=== PATIENT | male | born 1960 | race Caucasian/White ===

== ENCOUNTER 2024-08-13 08:13 | Outpatient (AMB) | payer OTHER, SELFPAY ==
--- NOTE | 2024-08-13 08:19 | MHC.OFFVIS ---
Vital Signs 08/13/24 08:26 Height 5 ft 11 in Weight 242 lb BMI 33.7 BP 140/88 H Blood Pressure Location Rt brachial Position Sitting Pulse 56 Pulse Source Pulse Oximeter Pulse Oximetry (%) 98 Oxygen Delivery Method Room Air Intake Visit Reasons: Colonoscopy Screening Intake Note: Relevant Flags or Indicators ? 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 Camilla Miguel presents in office today for a scheduled colonoscopy consultation. CC; hx of prior colo? Yes (5-6 years ago). Relevant GI Sx as reported per pt? Occasional heartburn, very infrequent and does not appear to be a concern. ? Hx of any recent surgeries? 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 male here today for pre colonoscopy screening.? Patient was sent to us by his PCP.? His last colonoscopy was over 5 years ago.? No blood work in his system, however his PCP send him for blood work today. Patient will get it done here at [facility] lab. Patient denies any gastrointestinal symptoms in the past or at present.? He does report occasional acid reflux once or twice a week uses Tums. Denies any personal or family history of gastrointestinal disease, colon polyps, or CRC.? Denies history of difficulty with sedation or anesthesia in the past.? Negative for history of sleep apnea.? Denies any history of cardiac, renal, pulmonary, or hepatic disease.?? No history of infectious? diseases like hepatitis A, B, C, HIV or tuberculosis.? Patient is not on any anticoagulation [facility] Medical History (Updated 08/13/24 @ 08:25 by GENEVA Mccrary) Migraine Family History (Updated 08/13/24 @ 08:25 by GENEVA Mccrary) Father Prostate cancer Diabetes Social History (Updated 08/13/24 @ 08:25 by GENEVA Mccrary) Alcohol intake: current Comment: Socially Patient Tobacco Use Status: Never used Tobacco Use of substances other than those prescribed or required for medical reasons: No Review of Systems Const Denies weight gain and Denies weight loss ENT Reports no additional complaints, Denies dysphagia and Denies odynophagia Card Reports no additional complaints Resp Reports no additional complaints GI Denies abdominal pain, Denies belching, Denies melena, Denies bloating, Denies change in bowel habits, Denies dysphagia, Denies excessive flatus, Denies dyspepsia, Denies heartburn, Denies diarrhea, Denies loose stools, Denies nausea, Denies odynophagia and Denies vomiting Reports no additional complaints Musc Reports no additional complaints Neuro Reports no additional complaints Psych Reports no additional complaints Endo Reports no additional complaints Physical Exam Vital Signs: Last Vital Signs Pulse 56 08/13/24 08:26 BP 140/88 H 08/13/24 08:26 Pulse Ox 98 08/13/24 08:26 Oxygen Delivery Method Room Air 08/13/24 08:26 BMI result Body Mass Index 33.7 Const General: healthy appearing, no acute distress and well developed Nutritional Appearance: well nourished Orientation/consciousness: patient oriented x3 Resp Effort & Inspection: normal respiratory effort, able to speak in complete sentences, no tracheal deviation and symmetric chest movement Auscultation: clear to auscultation bilaterally Cardio Rate: regular rate GI Inspection: Yes normal to inspection and No distended Palpation (GI): Soft to palpation, not firm, nontender and No hepatosplenomegaly present Auscultation: normal bowel sounds General: Yes no CVA tenderness Back/Spine/Pelvis Back: no CVA tenderness Skin General skin exam: elasticity normal, turgor normal and dry skin Neuro General: patient oriented x3 Psych Appearance: grossly normal Mental Status: mental status grossly normal Assessment & Plan Assessment & Plan (1) Screen for colon cancer: Code(s): Z12.11 - Encounter for screening for malignant neoplasm of colon Plan Patient denies any GI, cardiac or respiratory symptoms.? Denies any issues with anesthesia in the past.? Denies any history of sleep apnea.? No history infectious diseases in the past or present.? Not on any anticoagulation therapy.? No family or personal history of colon cancer or polyps.? Patient denies melena, hematochezia, unintentional weight loss or ribbon like stools.? Discussed at length the pre-procedure,? prep, diet & medications as well as what to expect prior, during and after the procedure.?? Stressed the importance of good bowel prep.? Recommended the use of Vaseline or Calmoseptine OTC & baby wipes with bowel movements to promote comfort.? ?Patient verbalizes understanding and agrees to plan of care.? He was given the opportunity to ask questions and all questions answered.? We will see him after the procedure.? Medications: New polyethylene glycol 3350 (Miralax) As directed by gastroenterology department at [facility] 238 grams PO ONCE 238 grams 0RF Z12.11 - Encounter for screening for malignant neoplasm of colon bisacodyl (Dulcolax (bisacodyl)) take 4 tabs at noon the day before your colonoscopy 20 mg (4 x 5 mg) PO ONCE 1 day 4 tabs 0RF Z12.11 - Encounter for screening for malignant neoplasm of colon Coding Level of Care Code New Pt Level 3 (72758) Diagnoses Screen for colon cancer Z12.11 Time Spent (min) 40 Comment 30 minutes spent with patient and additional 10 minutes spent reviewing his records
[2024-08-13 08:26] VITALS: BP 140/88; PULSE 56; O2SAT 98; BMI 33.7
== END 2024-08-13 09:28 | disposition home or self-care (01) ==
PROVIDERS: PCP Internal Medicine; Visit Provider Nurse Practitioner Family
DX: Z01.818 Encounter for other preprocedural examination (principal); Z12.11 Encounter for screening for malignant neoplasm of colon
CPT/HCPCS: S0285

== ENCOUNTER → 2024-08-13 08:13 | Outpatient (BNVA) | payer OTHER, SELFPAY | PROVIDERS: PCP Internal Medicine; Visit Provider Nurse Practitioner Family ==

== ENCOUNTER 2024-08-13 09:08 | Outpatient (REF) | payer OTHER, SELFPAY ==
[2024-08-13 09:43] LABS: MANUAL DIFF FLAG NO
[2024-08-13 10:58] LABS: Basophils Absolute Auto 0.1 X10*3/uL (0.0-0.2); Basophils Percent Auto 1.8 % (0-2); Eosinophils Absolute Auto 0.2 X10*3/uL (0.0-0.4); Eosinophils Percent Auto 4.2 % (0-4); Hematocrit 45.2 % (42.0-52.0); Hemoglobin 15.5 g/dl (14.0-18.0); Imm Gran Abs Auto 0.03 X10*3/uL (0.00-0.03); Imm Gran Pct Auto 0.6 % (0.0-0.4); Lymphocytes Absolute Auto 1.7 X10*3/uL (1.2-4.9); Lymphocytes Percent Auto 33.7 % (20-40); Mean Corpuscular HGB Conc 34.3 g/dl (31.0-36.0); Mean Corpuscular Hemoglobin 30.5 pg (27.0-33.0); Mean Platelet Volume 10.2 fL (9.4-12.4); Monocytes Absolute Auto 0.5 X10*3/uL (0.1-1.2); Monocytes Percent Auto 10.6 % (2-11); Neutrophils Absolute Auto 2.5 x10*3/uL (2.0-8.3); Neutrophils Percent Auto 49.1 % (45-73); Platelet Count 204 X10*3/uL (160-400); Red Blood Count 5.08 X10*6/uL (4.60-5.80); Red Cell Distribution Width 12.8 % (11.0-16.0)
[2024-08-13 11:07] LABS: Estimated Average Glucose 111 mg/dL; Hemoglobin A1C 141.7455 umol/L; Hemoglobin A1c % 5.5 % (<6.0); Total Hemoglobin (HGBA1C) 3907.9543 umol/L
[2024-08-13 11:47] LABS: Prostate Specific Antigen Scr 3.23 ng/mL (<0.05-4.0)
[2024-08-13 11:51] LABS: Alanine Aminotransferase 45 U/L (0-40); Albumin Level 4.2 g/dL (3.5-5.0); Alkaline Phosphatase 65 U/L (39-117); Anion Gap 14 (12-20); Aspartate Amino Transferase 38 U/L (5-37); Bilirubin Total 0.5 mg/dL (0.0-1.0); Blood Urea Nitrogen 18 mg/dL (9-16); Calcium 9.3 mg/dL (8.4-10.2); Carbon Dioxide 24 mmol/L (22-29); Chloride 106 mmol/L (96-108); Cholesterol 222 mg/dL (<200); Estimated Glomerular Filt Rate > 60; Glucose Random 88 mg/dL (60-115); HDL Cholesterol 45 mg/dL (>40); LDL Cholesterol Calculated 130 mg/dL (<100); Potassium 4.4 mmol/L (3.3-5.1); Sodium 140 mmol/L (135-145); Total Protein 7.3 g/dL (6.5-8.0); Triglycerides 236 mg/dL (<150)
[2024-08-13 11:55] LABS: TSH reflex Free T4 2.44 uIU/mL (0.32-4.0)
== END 2024-08-13 09:09 | disposition home or self-care (01) ==
LOC: HO.LAB 09:08
PROVIDERS: PCP Internal Medicine; Referring Provider Nurse Practitioner Family; Visit Provider Internal Medicine
DX: Z00.00 Encounter for general adult medical examination without abnormal findings (principal); G43.001 Migraine without aura, not intractable, with status migrainosus; Z83.3 Family history of diabetes mellitus; Z12.5 Encounter for screening for malignant neoplasm of prostate; Z13.1 Encounter for screening for diabetes mellitus
CPT/HCPCS: 36415; 80053; 80061; 83036; 84153; 84443; 85025

== ENCOUNTER 2024-12-18 08:13 | Day surgery (SDC) | payer OTHER, SELFPAY ==
[2024-12-16 14:56] VITALS: BMI 33.7
--- NOTE | 2024-12-17 09:18 | P.CONAN_ITS ---
Documented by User: Ena Olmedo NP 12/17/24 09:18 HPI - Anesthesia Eval Consult details Narrative: 64yo M for Colonoscopy [facility], [facility] Past Medical History Medical History Migraine Family History Family History Father Prostate cancer Diabetes Surgical History Surgical History Hx of elbow surgery H/O colonoscopy Social History Social History Are you a primary customer care voice consultant to a significant other at home: No Do you presently have visiting nurse or other home services: No Alcohol intake: current Comment: Socially Patient Tobacco Use Status: Never used Tobacco Have you been hit, kicked, punched, or otherwise hurt by someone within the past year? If so, by whom?: No Are you DNR?: No Advance Directives: No Advance Directives Information Provided: Yes Poor oral hygiene: No Meds Allergies Allergy/AdvReac Type Severity Reaction Status Date / Time No Known Drug Allergies Allergy Unknown Verified 12/18/24 08:24 Home Medications ?Medication ?Instructions ?Recorded ?Confirmed ?Last Taken ?Type sumatriptan succinate 25 mg tablet mg PO 08/08/24 Unknown History multivitamin 1 tab PO DAILY 08/13/24 12/18/24 Unknown History niacin 100 mg tablet 100 mg PO DAILY 08/13/24 12/18/24 Unknown History omega 0-wqn-jzz-fish oil 60 mg-90 1 cap PO DAILY 08/13/24 12/18/24 Unknown History mg-500 mg capsule Exam Height,Weight and Vital Signs: Height 5 ft 11 in Weight 109.769 kg Assessment and Plan Assessment Anesthesia Assessment: Chart Reviewed Documented by User: Bren Singletary MD 12/18/24 10:16 [facility] Past Medical History Medical History Migraine Family History Family History Father Prostate cancer Diabetes Surgical History Surgical History Hx of elbow surgery H/O colonoscopy History of Problems with Anesthesia: No Social History Social History Are you a primary customer care voice consultant to a significant other at home: No Do you presently have visiting nurse or other home services: No Alcohol intake: current Comment: Socially Patient Tobacco Use Status: Never used Tobacco Have you been hit, kicked, punched, or otherwise hurt by someone within the past year? If so, by whom?: No Are you DNR?: No Advance Directives: No Advance Directives Information Provided: Yes Poor oral hygiene: No Meds Allergies Allergy/AdvReac Type Severity Reaction Status Date / Time No Known Drug Allergies Allergy Unknown Verified 12/18/24 08:24 Home Medications ?Medication ?Instructions ?Recorded ?Confirmed ?Last Taken ?Type sumatriptan succinate 25 mg tablet mg PO 08/08/24 Unknown History multivitamin 1 tab PO DAILY 08/13/24 12/18/24 Unknown History niacin 100 mg tablet 100 mg PO DAILY 08/13/24 12/18/24 Unknown History omega 3-dnd-uwn-fish oil 60 mg-90 1 cap PO DAILY 08/13/24 12/18/24 Unknown History mg-500 mg capsule Exam Airway Mallampati Class: III TM Dist: >3cm Neck ROM: Full Loose/Missing/Broken Teeth: No Heart: RRR Lungs: CTA Assessment and Plan Assessment Anesthesia Assessment: Anesthesia Plan Discussed Final Anesthetic Review History of Problems with Anesthesia: No NPO: Yes ASA Class: II Final Preanesthetic Review: Meds/Allgs Chart Reviewed, Consent Obtained/Reviewed and Anes Risks/Benef Reviewed Patient Risk: Low Procedure Risk: Low Anesthetic Plan Anesthetic Plan: MAC: Disposition: Standard PACU
[2024-12-18 08:26] VITALS: BMI 33.3
[2024-12-18] MEDS: Lactated Ringers 1,000 ML 100 ML IVCONT (08:32)
[2024-12-18 08:41] VITALS: BP 146/93; PULSE 64; RESP 18; TEMP 36.7; O2SAT 99
--- NOTE | 2024-12-18 09:35 | MHC.SHP ---
Pre-Procedural Eval Section A - 24 Hr Update-Section A only Date of Service: 12/18/24 Section B - Complete if H&P > 30 days Chief Complaint: Encounter for screening for malignant neoplasm of Relevant Family History (Specify if Yes): No Relevant Social History: None Present Medications: see Short Stay Collaborative assessment Medical History: Significant History (migraine ) History of Previous Operations: Relevant previous surgery/procedure and date(s) (colonoscopy) Allergies: Allergies Allergy/AdvReac Type Severity Reaction Status Date / Time No Known Drug Allergies Allergy Unknown Verified 12/18/24 08:24 Review of Systems Sugical H&P ROS: Negative: Constitution, Cardiovascular, Respiratory, Neurological, Psychiatric, Hem-Onc, Allergic/Immunologic, Gastrointestinal, Genitourinary, Musculoskeletal, Integumentary, Endocrine and Eyes/Ears/Nose/Throat Exam Surgical H&P Exam: Normal: HEENT, Normal: Heart, Normal: Lungs, Normal: Extremities, Normal: Abdomen, Normal: Skin and Normal: Neurological Plan Diagnosis/Plan: Unchanged I have reviewed the history and physical and performed a pertinent physical examination on my patient. No changes have occurred unless specified. Time Spent With Patient Time: Total time managing care of this patient today ____ minutes.
--- NOTE | 2024-12-18 10:27 | P.OPN-COLO_ITS ---
Colonoscopy Operative Note Operative Note Date of Service: 12/18/24 Narrative: Operative Information Procedure Description: Colonoscopy Indication: screening Anesthesia: MAC COLONOSCOPY Instrument: Olympus variable stiffness pediatric scope 190L Colonoscopy Monitoring: Vital signs and clinical assessment, continuous EKG monitoring, Pulse oximetry, Carbon Dioxide monitoring and blood pressure monitoring were done throughout the procedure. Colon withdrawal time was 7 minutes. Procedure: The patient was placed in the left lateral decubitis position and pre-procedure medications were administered. After a digital rectal examination of the ano-rectum, the video colonoscope was inserted into the rectum and advanced through the colon to the cecum/TI. The colonoscope was slowly withdrawn in a retrograde panoramic fashion and the colon mucosa was carefully examined including a retroflexed view of the rectum. Findings and interventions are described below. Procedure Difficulty: easy Findings: Terminal Ileum-normal Cecum:normal Right sided retroflexion- normal Ascending Colon: normal Transverse Colon -normal Descending Colon:normal Sigmoid Colon: normal Rectum: Retroflexion with small internal hemorrhoids seen, grade I Anorectum - normal Intervention: none Colon preparation: [place] Bowel Preparation Scale Right colon; 2 Transverse colon: 2 Left colon; 2 (0 = Unprepared colon segment with mucosa not seen due to solid stool that cannot be cleared. 1 = Portion of mucosa of the colon segment seen, but other areas of the colon segment not well seen due to staining, residual stool and/or opaque liquid. 2 = Minor amount of residual staining, small fragments of stool and/or opaque liquid, but mucosa of colon segment seen well. 3 = Entire mucosa of colon segment seen well with no residual staining, small fragments of stool or opaque liquid) Impression and Post Procedure Diagnosis: internal hemorrhoids Plan: High fiber diet leaflet Avoid straining at stool, epsom salts and sitz bath, anusol supps or cream Repeat Colonoscopy in 10 years or earlier if clinically indicated Above findings were reviewed with the patient and relevant handouts were provided if indicated.
[2024-12-18 10:34] VITALS: PULSE 68; RESP 18; TEMP 36.2; O2SAT 97
[2024-12-18 10:35] VITALS: BP 113/63
[2024-12-18 10:49] VITALS: BP 139/92; PULSE 60; RESP 18; O2SAT 97
[2024-12-18 11:04] VITALS: BP 136/88; PULSE 55; RESP 18; TEMP 36.3; O2SAT 99
== END 2024-12-18 11:39 | disposition home or self-care (01) ==
PROVIDERS: Visit Provider Internal Medicine Gastroenterology
PROC: 0DJD8ZZ Inspection of Lower Intestinal Tract, Via Natural or Artificial Opening Endoscopic (ICD-10-PCS; CPT 45378; principal; 2024-12-18 11:10)
DX: Z12.11 Encounter for screening for malignant neoplasm of colon (principal); K64.0 First degree hemorrhoids
CPT/HCPCS: 45378; J2003; J2704

== ENCOUNTER → 2024-12-18 08:13 | Outpatient (BNV) | payer OTHER, SELFPAY | PROVIDERS: Visit Provider Internal Medicine Gastroenterology | DX: Z12.11 Encounter for screening for malignant neoplasm of colon (principal); K64.0 First degree hemorrhoids | CPT/HCPCS: 45378 ==

== ENCOUNTER 2025-05-06 08:57 | Outpatient (REF) | payer OTHER, SELFPAY ==
--- OUTSIDE RECORDS SUMMARY | 2025-05-06 09:41 | XMS_ITS | Encounter Summary ---
Author Organization [facility] Address [address] [place] [phone] Phone Care Team Providers Care Ux Design Manager Name Role Phone Rosa Downs Ann PRODUCE DEPARTMENT SUPERVISOR Unavailable [phone] Jefferson Blanton MD Primary Care Provider + [phone] Reason for Visit * Reason Onset Date Comments Triage 05/05/2025 Yellow+tick Encounter Details Date Type Department Care Team (Late st Contact Info) Description 05/05/2025 Telephone [facility] [place] Internal Medicine 14 [facility] [address] [place], [place] [phone] Jefferson Blanton MD 14 [facility] [address] [place], [place] [phone] [email or web address] Triage (Yellow+tick) Social History Tobacco Use Types Packs/Day Years Used Date Smoking Tobacco: Never Smokeless Tobacco: Never Alcohol Use Standard Drinks/Week Comments Yes 0 (1 standard drink = 0.6 oz pur e alcohol) Child or Family Care Answer Date Record ed Do you have problems with on e of the following making it difficult for you to work, study, or receive health care? I choose not to answer 05/07/2024 Education Answer Date Recorded Are you interested in help w ith more adult education (for example, completing high school, GED, job training, learning the [place] language, technical skills, or developing parenting skills)? I choose not to answer 05/07/2024 Are you concerned about learning? Not on file 05/07/2024 No 05/07/2024 Yes 05/07/2024 Food Answer Date Recorded Within the past 6 months we worried whether our food would run out before we got money to buy more. Never True 05/07/2024 Within the past 6 months the food we bought just didn't last and we didn't have enough money to get more. I choose not to answer 05/07/2024 Residential Stability Answer Date Recor ded What is your housing situation today? I choose n ot to answer 05/07/2024 How many times have you move d in the past 12 months? I choose not to answer 05/07/2024 Paying for Meds Answer Date Recorded Do you have trouble paying for medicines? I javier se not to answer 05/07/2024 Paying Utility Bills Answer Date Record ed Do you have trouble paying y our heating or electricity bill? I choose not to answer 05/07/2024 Transportation Answer Date Recorded Has the lack of transportati on kept you from medical appointments or from getting medications? I choose not to answer 05/07/2024 Digital Access Answer Date Recorded No 05/07/2024 No 05/07/2024 Do you have reliable internet access at home? I choose not to answer 05/07/2024 Do you have a device (e.g., phone, tablet, computer) with a working camera? I choose not to answer 05/07/2024 Intimate Partner Violence Answer Date R ecorded Denied Basic Needs Not on file 09/04/2024 In the past 12 months have y ou been in a relationship with a person who hurts, threatens, or tries to control you? No 09/04/2024 Worried food would run out Not on file 09/04 In the past 12 months have y ou been in a relationship with a person who hurts, threatens, or tries to control you? No 09/04/2024 Sex and Gender Information Value Date Recorded Sex Assigned at Male 05/06/2021 8:29 AM EDT Legal Sex Male 9:45 PM EDT Gender Identity Male 05/06/2021 8:29 AM EDT Sexual Orientation Not on file documented as of this encounter Progress Notes * Ale Herzog RN - 05/05/2025 9:08 AM EDT Call made to patient to review He states that he feels his symptoms are likely from work, isnt too worried about them States its been about 6 months of really achy joints, muscle aches and feeling tired The fatigue comes in waves, sometimes its worse than others In the lr a lot and has tick exposure Denies any fevers, rashes or worsening headaches States he gets migraines but they are baseline for him Advised since symptoms have been going on for 6 months that it is best to have an in office evaluation He is agreeable to plan Appointment scheduled for today at 330 pm * Netta Hobson - 05/05/2025 8:34 AM EDT [facility] Top Smart Phrases: Red Yellow Green Guidelines Select Red, Yellow, Green Triage Intake *Route to appropriate staff member/pool according to practice guidelines* Yellow Call Intake Call Back Number: (if not patient, name/relationship) [phone] Eveiln- Yellow Symptom: Tick bite When did these symptoms start? 3 months Have you ever experienced these symptoms before? NO Any additional information: Pt's states she believes pt was bit by a tick at some point in the last 2-3 months [place] but are pretty good about looking for ticks she has not seen one on him but all his symptoms point to lyme disease, he has muscle aches, fever, (she is not sure what the fever is) but states pt has been bundled up in clothes, pt is exhausted she states he has gotten worse as the months have passed can barley function Route Normal Priority Encounter to interior paneler Reason for Call = TRIAGE Comment = YELLOW + symptom documented in this encounter Plan of Treatment Upcoming Encounters Date Type Department Care Team (Late st Contact Info) Description 09/16/2025 3:40 PM EST Office Visit [facility] Internal Medicine [address] [address] Jefferson Blanton MD 14 [facility] [address] [place] [phone] [email or web address] documented as of this encounter Visit Diagnoses Not on filedocumented in this encounter Additional Health Concerns Assessment Noted Time PHQ-2 Depression Total Score: 0 09/04/20 24 3:20 PM EST documented as of this encounter Care Teams Ux Design Manager Relationship Specialty Start Date End Date Jefferson Blanton MD [address] [place] [phone] [email or web address] PCP - General Internal Medicine 03/26/24 Rosa Downs NP [address] [place] [phone] [email or web address] Historical LMR Provider 07/02/17 documented as of this encounter Additional Source Comments The information contained in this document represents components of the legal health record. It is not the complete legal health record.[facility]
[2025-05-06 11:18] LABS: Hematocrit 39.8 % (42.0-52.0); Hemoglobin 13.6 g/dl (14.0-18.0); Mean Corpuscular HGB Conc 34.2 g/dl (31.0-36.0); Mean Corpuscular Hemoglobin 30.6 pg (27.0-33.0); Mean Corpuscular Volume 89.4 fL (80.0-98.0); NRBC Abs Auto 0.000 X10*3/uL (0.0-0.012); NRBC Pct Auto 0.0 /100WBC (0.0-0.2); Platelet Count 125 X10*3/uL (160-400); Red Blood Count 4.45 X10*6/uL (4.60-5.80); White Blood Count 4.0 X10*3/uL (4.8-10.8)
[2025-05-06 11:54] LABS: Alanine Aminotransferase 42 U/L (0-40); Albumin Level 4.2 g/dL (3.5-5.0); Alkaline Phosphatase 78 U/L (39-117); Anion Gap 12 (12-20); Aspartate Amino Transferase 38 U/L (5-37); Blood Urea Nitrogen 19 mg/dL (9-16); Calcium 8.8 mg/dL (8.4-10.2); Carbon Dioxide 26 mmol/L (22-29); Chloride 106 mmol/L (96-108); Estimated Glomerular Filt Rate > 60; Potassium 4.1 mmol/L (3.3-5.1); Sodium 140 mmol/L (135-145); Total Protein 7.5 g/dL (6.5-8.0)
[2025-05-06 11:58] LABS: Atypical Lymph Absolute Manual 0.2 x10*3/uL; Atypical Lymphs Percent Manual 4 % (0-6); Band Neutrophils Percent 0 % (3-5); Basophils Abs Manual 0.1 X10*3/uL (0.0-0.2); Basophils Percent Manual 2 % (0-2); Eosinophils Absolute Manual 0.1 X10*3/uL (0.0-0.4); Eosinophils Percent Manual 3 % (0-4); Lymphocytes Absolute Manual 1.4 X10*3/uL (1.2-4.9); Lymphocytes Percent Manual 34 % (20-40); Monocytes Absolute Manual 0.3 X10*3/uL (0.1-1.2); Monocytes Percent Manual 7 % (2-11); Neutrophils Absolute Manual 2.0 X10*3/uL (2.0-8.3); Neutrophils Percent Manual 50 % (45-73)
[2025-05-06 11:59] LABS: RBC Morphology NORMAL
[2025-05-06 12:11] LABS: Thyroid Stimulating Hormone 2.59 uIU/mL (0.32-4.0)
[2025-05-07 05:53] LABS: Lyme Abs Screen <0.90 index
[2025-05-20 21:19] LABS: A. Phagocytophilum Ab IgG <1:64 (<1:64); A. Phagocytophilum Ab IgM <1:20 (<1:20)
== END 2025-05-06 08:58 | disposition home or self-care (01) ==
LOC: HO.HMGCLDS 08:57
PROVIDERS: Visit Provider Nurse Practitioner Adult Health
DX: Z01.84 Encounter for antibody response examination (principal); R53.83 Other fatigue; M25.50 Pain in unspecified joint; R53.81 Other malaise
CPT/HCPCS: 36415; 80053; 82306; 84443; 85007; 85025; 85027; 85652; 86140; 86617; 86618; 86666; 86753

== ENCOUNTER 2025-07-03 08:25 | Outpatient (REF) | payer OTHER, SELFPAY ==
--- OUTSIDE RECORDS SUMMARY | 2025-07-02 09:10 | XMS_ITS | Encounter Summary ---
Author Organization [facility] Address [address] [place] [phone] Phone Care Team Providers Care Global Transportation Manager Name Role Phone Rosa Downs PACKAGE CAR DRIVER Unavailable [phone] Jefferson Blanton MD Primary Care Provider + [phone] Reason for Visit * Reason Comments Follow Up Visit Encounter Details Date Type Department Care Team (Late st Contact Info) Description 07/02/2025 9:10 AM EDT Office Visit [facility] [place] Internal Medicine 14 [facility] [address] [place] [phone] Rosa Downs NP 14 [facility] [address] [place] [address] [phone] [email or web address] Psoriasis and similar disorder (Primary Dx); Left sided sciatica; Migraine without aura and with status migrainosus, not intractable; Laboratory examination ordered as part of a routine general medical examination; Babesiasis Social History Tobacco Use Types Packs/Day Years Used Date Smoking Tobacco: Never Smokeless Tobacco: Never Tobacco Cessation:Counseling Given: Not Answered Alcohol Use Standard Drinks/Week Comments Yes 0 [...] high school, GED, job training, learning the [place] language, technical skills, or developing parenting skills)? [...] on file documented as of this encounter Last Filed Vital Signs Vital Sign Reading Time Taken Comments Blood Pressure 126/82 07/02/2025 9:10 AM EDT Pulse 62 07/02/2025 9:10 AM EDT Temperature 36.2 C (97.2 F) 07/02/2025 9:10 AM EDT Respiratory Rate - - Oxygen Saturation 98% 07/02/2025 9:10 AM EDT Inhaled Oxygen Concentration - - Weight 112.4 kg (247 lb 12.8 oz) 07/02/2025 9:10 AM EDT Height - - Body Mass Index 35.76 09/04/2024 3:15 PM EST documented in this encounter Plan of Treatment Upcoming Encounters Date Type Department Care Team (Late st Contact Info) Description 09/16/2025 3:40 PM EST Office Visit [facility] Internal Medicine 14 [facility] [address] [place] [phone] Jefferson Blanton MD 14 [facility] [address] [place] [phone] [email or web address] documented as of this encounter Procedures Procedure Name Priority Date/Time Associated Diagnosis Comments XR SACROILIAC JOINTS Routine 07/02/2025 9:28 AM E DT Left sided sciatica XR LUMBAR SPINE Routine 07/02/2025 9:28 AM EDT Left sided sciatica documented in this encounter Visit Diagnoses Diagnosis Psoriasis and similar disorder- Primary Other psoriasis Left sided sciatica Sciatica Migraine without aura and with status migrainosus, not intractable Laboratory examination ordered as part of a routine general medical examination Babesiasis Babesiosis documented in this encounter Additional Health Concerns Assessment Noted Time PHQ-2 Depression Total Score: 0 06/09/20 25 6:14 PM EDT documented as of this encounter Care Teams Global Transportation Manager Relationship Specialty Start Date End Date Jefferson Blanton MD 14 [facility] [address] [place] [phone] [email or web address] PCP - General Internal Medicine 03/26/24 Rosa Downs NP 14 [facility] [address] [place] [address] [email or web address] Historical LMR Provider 07/02/17 documented as of this encounter Additional Source Comments The information contained in this document represents components of the legal health record. It is not the complete legal health record.[facility]
--- NOTE | ~2025-07-03 | XR_ITS ---
EXAMINATION: XR LUMBOSACRAL SPINE CLINICAL INFORMATION: M54.32 LEFT SIDE SCIATICA COMPARISON: None available. TECHNIQUE: AP and lateral views FINDINGS: Multilevel marginal osteophyte formation and syndesmophyte formation with endplate sclerosis and decreased intervertebral disc height throughout the axial skeleton pronounced at L2-3 and L5-S1. 1 mm retrolisthesis at L3-4 and L5-S1. No lytic or blastic lesions. No acute cortical disruption. Vascular calcifications in the aorta. Sclerosis and the inferior left sacroiliac joint. XR/XR lumbar spine 2-3V IMPRESSION: Multilevel thoracolumbar spondylosis resulting in grade 1 retrolisthesis L3-4 and L5-S1. Consider seronegative arthritis Electronically signed by: Rodney Morton MD 07/03/2025 09:03 AM EDT
--- NOTE | ~2025-07-03 | XR_ITS ---
EXAMINATION: XR SACROILIAC JOINTS CLINICAL INFORMATION: LEFT SIDE SCIATICA COMPARISON: None available. TECHNIQUE: AP and oblique views of the sacroiliac joints FINDINGS: No acute cortical disruption. No lytic or blastic lesions. Sclerosis in the left sacroiliac joint. Degenerative changes in the coxofemoral joints not fully evaluated.. XR/XR sacroiliac joint min 3V IMPRESSION: Probable left-sided sacroiliitis. Electronically signed by: Rodney Morton MD 07/03/2025 09:04 AM EDT
--- OUTSIDE RECORDS SUMMARY | 2025-07-03 08:51 | XMS_ITS | Clinical Summary ---
Author Organization [facility] Address [address] [place] [id number] Phone Care Team Providers Care Insole Coverer Name Role Phone Rosa Downs CHART PICKER Unavailable [phone] Jefferson Blanton MD Primary Care Provider + [phone] Allergies No known active allergies Medications omega 5-ksf-pia-fish oil 1,000 mg (120 mg-180 mg) Cap Take 1 capsule by mouth daily. Active therapeutic multivitamin tablet Take 1 tablet by mouth daily. Active niacin 500 MG tablet Take 500 mg by mouth daily with breakfast. Active SUMAtriptan (IMITREX) 25 MG tabletIndication s:Migraine without aura and with status migrainosus, not intractable,Labo ratory examination ordered as part of a routine general medical examination Take 1 tablet (25 mg total) by mouth every 2 (two) hours as needed for migraine. 27 tablet 5 09/30/19 26 Active doxycycline monohydrate (MONODOX) 100 MG capsule Take 2 capsules (200 mg total) by mouth once as needed (tick bites). 20 capsule 5 Active SUMAtriptan (IMITREX) 25 MG tabletIndication s:Migraine without aura and with status migrainosus, not intractable,Labo ratory examination ordered as part of a routine general medical examination TAKE 1 TABLET (25 MG TOTAL) BY MOUTH EVERY 2 (TWO) HOURS NEEDED FOR MIGRAINE. 27 tablet 5 07/02/20 25 Discontinu ed(Reorder ) doxycycline monohydrate (MONODOX) 100 MG capsuleIndicatio ns:Acute Lyme disease Take 1 capsule (100 mg total) by mouth 2 (two) times a day for 21 days. 42 capsule 5 06/16/20 25 azithromycin (ZITHROMAX Z-JANELLE) 250 MG tabletIndication s:Babesiasis Take 2 tablets (500 mg total) by mouth daily for 1 day, THEN 1 tablet (250 mg total) daily for 6 days. Take 2 tablets on day 1, and take 1 tablet on days 2 through 5 for a total of 5 days.. 8 tablet 5 06/23/20 25 atovaquone (MEPRON) 750 mg/5 mL suspensionIndica tions:Babesiasis Take 5 mL (750 mg total) by mouth every 12 (twelve) hours for 10 days. 100 mL 5 06/26/20 25 Active Problems Problem Noted Date Diagnosed Date Hyperlipidemia 02/06/2019 Encounters Date Type Department Care Team Description 07/02/2025 9:10 AM EDT Office Visit [facility] [address] [id number] Rosa Downs NP Psoriasis and similar disorder (Primary Dx); Left sided sciatica; Migraine without aura and with status migrainosus, not intractable; Laboratory examination ordered as part of a routine general medical examination; Babesiasis 06/25/2025 Telephone [facility] [address] [phone] Jefferson Blanton MD Follow-up 06/16/2025 10:10 AM EDT Office Visit [facility] [address] [address] Rosa Downs NP Babesiasis (Primary Dx); Sacroiliitis 05/25/2025 Telephone [facility] [address] [address] Jefferson Blanton MD lab results 05/05/2025 3:30 PM EDT Office Visit [facility] [address] [place] [id number] Rosa Downs NP Malaise and fatigue (Primary Dx); Generalized joint pain; Sacroiliitis 05/05/2025 Telephone [facility] 14 [facility] [address] [place] [address] Jefferson Blanton MD Triage (Yellow+tick) from Last 3 Months Immunizations Immunization Administration Dates Next Due COVID-19 (Pre-07/09) Moderna Vaccine, mRNA, PF 0 12/09/2020 Influenza trivalent preservative free intraderma l 09/02/2013 Td (adult), not adsorbed 07/21/2019 Tdap 09/02/2013 Family History Medical History Relation Comments No Known Problems Brother 1 No Known Problems Brother 2 No Known Problems Brother 3 No Known Problems Brother 4 No Known Problems Brother 5 Coronary artery disease Father Prostate cancer Father Relation Status Comments Brother 1 Alive Brother 2 Alive Brother 3 Alive Brother 4 Alive Brother 5 Alive Father Social History Tobacco Use Types Packs/Day Years [...] high school, GED, job training, learning the [place] language, technical skills, or developing parenting skills)? [...] have trouble paying for medicines? I javier martinez not to answer 05/07/2024 Paying Utility Bills [...] AM EDT Sexual Orientation Not on file Last Filed Vital Signs Vital Sign Reading Time Taken Comments Blood Pressure 126/82 07/02/2025 9:10 AM EDT Pulse 62 07/02/2025 9:10 AM EDT Temperature 36.2 C (97.2 F) 07/02/2025 9:10 AM EDT Respiratory Rate 18 05/06/2021 12:2 4 PM EDT Oxygen Saturation 98% 07/02/2025 9:10 AM EDT Inhaled Oxygen Concentration - - Weight 112.4 kg (247 lb 12.8 oz) 07/02/2025 9:10 AM EDT Height 177.3 cm (5' 9.8 ) 09/04/2024 3:15 PM EST Body Mass Index 35.76 09/04/2024 3:15 PM EST Plan of Treatment Upcoming Encounters Date Type Department Care Team ([facility] st Contact Info) Description 09/16/2025 3:40 PM EST Office Visit [facility] 14 [facility] [address] [place] [address] Jefferson Blanton MD 14 [facility] [address] [place] [email or web address] Health Maintenance Due Date Last Done Comments LIPID PANEL 1962 HEPATITIS C SCREENING 1980 HIV ONE-TIME SCREENING (18-6 5 YEARS) 1980 COLOGUARD 2007 COLONOSCOPY 2007 COLORECTAL CANCER SCREENING 2007 FIT TEST 2007 FOBT 2007 SIGMOIDOSCOPY 2007 VIRTUAL COLONOSCOPY 2007 PNEUMOCOCCAL VACCINES (50+ years) (1 of 1 - PCV) 2012 ZOSTER VACCINES (1 of 2) 2012 SCREENING FOR DIABETES 05/06/2024 05/06/2021 INFLUENZA VACCINE (#1) 2025 09/02/2013 COVID-19 VACCINE (4 - 2024-2 6 season) 2025 12/30/2020, 12/09/2020, 12/09/2020 DEPRESSION SCREENING 06/09/2026 06/09/2025 Adult Td,Tdap Booster 07/21/2029 07/21/2019 , 09/02/2013 RSV VACCINE (1 - 1-dose 75+ series) 2037 SMOKING STATUS SCREENING (On ce After 26 Yrs) Completed 07/02/2025 HEPATITIS A VACCINES Aged Out No long er eligible based on patient's age to complete this topic HIB VACCINES Aged Out No longer eligi ble based on patient's age to complete this topic MENINGOCOCCAL VACCINES (ACWY) Aged Out No longer eligible based on patient's age to complete this topic MENINGOCOCCAL VACCINES (B) Aged Out N o longer eligible based on patient's age to complete this topic Medical Devices Not on file Procedures Procedure Name Priority Date/Time Associated Diagnosis Comments XR SACROILIAC JOINTS Routine 07/02/2025 9:28 AM E DT Left sided sciatica XR LUMBAR SPINE Routine 07/02/2025 9:28 AM EDT Left sided sciatica from Last 3 Months Insurance [email or web address] ADMIN[employer]ATORS [employer] ADMINISTRATORS [employer] BENEFITS ADMINISTRATORS [facility] BENEFITS ADMINISTRATORS Care Teams Insole Coverer Relationship Specialty Start Date End Date Jefferson Blanton MD [address] [place] [address] [address] [place] [address] [email or web address] PCP - General Internal Medicine 03/26/24 Rosa Downs NP [address] [place] [address] [address] [place] [address] [email or web address] Historical LMR Provider 07/02/17 Additional Source Comments The information contained in this document represents components of the legal health record. It is not the complete legal health record.[facility]
[2025-07-03 10:01] LABS: MANUAL DIFF FLAG NO
[2025-07-03 10:05] LABS: Hematocrit 44.9 % (42.0-52.0); Hemoglobin 15.4 g/dl (14.0-18.0); Imm Gran Abs Auto 0.04 X10*3/uL (0.00-0.03); Imm Gran Pct Auto 0.8 % (0.0-0.4); Lymphocytes Absolute Auto 1.8 X10*3/uL (1.2-4.9); Mean Corpuscular HGB Conc 34.3 g/dl (31.0-36.0); Mean Corpuscular Hemoglobin 30.5 pg (27.0-33.0); Mean Corpuscular Volume 88.9 fL (80.0-98.0); NRBC Abs Auto 0.000 X10*3/uL (0.0-0.012); NRBC Pct Auto 0.0 /100WBC (0.0-0.2); Platelet Count 188 X10*3/uL (160-400); Red Blood Count 5.05 X10*6/uL (4.60-5.80); White Blood Count 4.8 X10*3/uL (4.8-10.8)
[2025-07-03 12:41] LABS: Alanine Aminotransferase 37 U/L (0-40); Albumin Level 4.4 g/dL (3.5-5.0); Alkaline Phosphatase 75 U/L (39-117); Anion Gap 13 (12-20); Aspartate Amino Transferase 33 U/L (5-37); Blood Urea Nitrogen 23 mg/dL (9-16); Calcium 8.7 mg/dL (8.4-10.2); Carbon Dioxide 23 mmol/L (22-29); Chloride 108 mmol/L (96-108); Estimated Glomerular Filt Rate > 60; Potassium 3.8 mmol/L (3.3-5.1); Sodium 140 mmol/L (135-145); Total Protein 7.3 g/dL (6.5-8.0)
== END 2025-07-03 08:26 | disposition home or self-care (01) ==
LOC: HO.HMGCX 08:25
PROVIDERS: PCP Nurse Practitioner Adult Health; Visit Provider Nurse Practitioner Adult Health
DX: Z01.84 Encounter for antibody response examination (principal); M54.32 Sciatica, left side; B60.00 Babesiosis, unspecified
CPT/HCPCS: 36415; 72100; 72202; 80053; 85025; 86140; 86753

== ENCOUNTER → 2025-07-03 08:48 | Outpatient (BNV) | payer OTHER, SELFPAY | PROVIDERS: PCP Nurse Practitioner Adult Health; Visit Provider Radiology Diagnostic Radiology | DX: M47.815 Spondylosis without myelopathy or radiculopathy, thoracolumbar region (principal); M54.32 Sciatica, left side | CPT/HCPCS: 72100; 72202 ==